=== PATIENT | female | born 1980 | race Caucasian/White ===

== ENCOUNTER 2018-09-05 20:08 | Emergency (ER) | payer OTHER ==
[2018-09-05] MEDS: IBUPROFEN 600 MG TAB PO (22:35)
== END 2018-09-05 22:35 | disposition home or self-care (01) ==
LOC: E/R 20:08
DX: R20.0 Anesthesia of skin (principal); R40.2142 Coma scale, eyes open, spontaneous, at arrival to emergency department; R40.2362 Coma scale, best motor response, obeys commands, at arrival to emergency department; R40.2252 Coma scale, best verbal response, oriented, at arrival to emergency department; R51 Headache
CPT/HCPCS: 70450; 81025; 93005; 99284-25